=== PATIENT | female | born 1985 | race Two or more races ===

== ENCOUNTER 2018-05-22 13:58 | Observation (INO) | payer MEDICAID ==
[~2018-05-22] VITALS: Ht 152.4 cm; Wt 67.6 kg
[2018-05-22 14:50] VITALS: BP 102/60
[2018-05-22] MEDS ORDERED: PREN-380 PO (15:34)
== END 2018-05-22 15:50 | disposition home or self-care (01) ==
LOC: MLD 13:58
PROVIDERS: ADMIT Obstetrics & Gynecology; ATTEND Obstetrics & Gynecology
DX: O26.893 Other specified pregnancy related conditions, third trimester (principal); R10.9 Unspecified abdominal pain; Z3A.38 38 weeks gestation of pregnancy
CPT/HCPCS: 76805; G0378; Q0092

== ENCOUNTER 2018-05-31 10:16 | Observation (INO) | payer MEDICAID ==
[~2018-05-31] VITALS: Ht 152.4 cm; Wt 68.9 kg
[~2018-05-31 10:16] MED LIST: PREN-380 PO
[2018-05-31 11:12] VITALS: BP 104/56
== END 2018-05-31 12:53 | disposition home or self-care (01) ==
LOC: MLD 10:16
PROVIDERS: ADMIT Obstetrics & Gynecology; ATTEND Obstetrics & Gynecology
DX: O26.893 Other specified pregnancy related conditions, third trimester (principal); R10.30 Lower abdominal pain, unspecified; Z3A.39 39 weeks gestation of pregnancy
CPT/HCPCS: 59025; 76815; 81000; G0378; Q0092

== ENCOUNTER 2018-06-05 10:52 | Observation (INO) | payer MEDICAID ==
[~2018-06-05] VITALS: Ht 152.4 cm; Wt 68.9 kg
== END 2018-06-05 13:35 | disposition home or self-care (01) ==
LOC: MLD 10:52
PROVIDERS: ADMIT Obstetrics & Gynecology; ATTEND Obstetrics & Gynecology
DX: O26.893 Other specified pregnancy related conditions, third trimester (principal); R10.9 Unspecified abdominal pain; O62.9 Abnormality of forces of labor, unspecified; R51 Headache; Z3A.40 40 weeks gestation of pregnancy
CPT/HCPCS: 59025; 76815; G0378; Q0092

== ENCOUNTER 2018-06-08 10:52 | Observation (INO) | payer MEDICAID ==
[~2018-06-08] VITALS: Ht 152.4 cm; Wt 68.9 kg
== END 2018-06-08 12:35 | disposition home or self-care (01) ==
LOC: MLD 10:52
PROVIDERS: ADMIT Obstetrics & Gynecology; ATTEND Obstetrics & Gynecology
DX: O26.893 Other specified pregnancy related conditions, third trimester (principal); R10.30 Lower abdominal pain, unspecified; Z3A.38 38 weeks gestation of pregnancy
CPT/HCPCS: 76815; G0378; Q0092; 59025

== ENCOUNTER 2018-06-12 08:29 | Observation (INO) | payer MEDICAID ==
[~2018-06-12] VITALS: Ht 152.4 cm; Wt 69.9 kg
[2018-06-12 09:39] VITALS: BP 110/71
== END 2018-06-12 14:20 | disposition home or self-care (01) ==
LOC: INTOOBSV 08:29 → MLD 08:29
PROVIDERS: ADMIT Obstetrics & Gynecology; ATTEND Obstetrics & Gynecology
DX: O26.893 Other specified pregnancy related conditions, third trimester (principal); R10.9 Unspecified abdominal pain; O62.9 Abnormality of forces of labor, unspecified; Z3A.40 40 weeks gestation of pregnancy
CPT/HCPCS: 76815; G0378; Q0092; 81000

== ENCOUNTER 2018-06-12 17:38 | Inpatient (IN) | payer MEDICAID ==
[~2018-06-12] VITALS: Ht 152.4 cm; Wt 69.9 kg
[2018-06-12] MEDS ORDERED: METHYLERGONOVINE 0.2 MG/ML AMP IM PRN (18:10)
[2018-06-12] MEDS ORDERED: CARBOPROST 250 MCG/ML AMP IM PRN (18:10)
[2018-06-12] MEDS ORDERED: PROMETHAZINE 25 MG/ML VIAL IVP PRN (18:10)
[2018-06-12] MEDS ORDERED: NALBUPHINE 10 MG/ML AMP IVP PRN ×2 (18:10→20:05)
[2018-06-12] MEDS ORDERED: OXYTOCIN 10 UNITS/ML VIAL IM SCH (18:30)
[2018-06-12 19:26] LABS: BASOPHILS % (AUTO) 0.3 % (0.0-2.0); EOSINOPHILS # (AUTO) 0.1 K/uL (0-0.4); EOSINOPHILS % (AUTO) 0.6 % (0.0-4.0); HEMATOCRIT 38.5 % (36-48); HEMOGLOBIN 12.4 g/dL (12.0-16.0); LYMPHOCYTES # (AUTO) 1.5 K/uL (2.5-16.5); LYMPHOCYTES % (AUTO) 16.8 % (20.5-51.1); MEAN CORPUSCULAR HEMOGLOBIN 30 pg (27-31); MEAN CORPUSCULAR HGB CONC 32 g/dL (33-37); MEAN CORPUSCULAR VOLUME 93.1 fL (80-94); MONOCYTES # (AUTO) 0.8 K/uL (0.8-1.0); MONOCYTES % (AUTO) 8.9 % (1.7-9.3); NEUTROPHILS # (AUTO) 6.7 K/uL (1.8-7.7); NEUTROPHILS % (AUTO) 73.4 % (42.2-75.2); PLATELET COUNT (AUTO) 175 K/uL (140-450); RED BLOOD CELL COUNT(AUTO) 4.13 MIL/uL (4.20-5.40); RED CELL DISTRIBUTION WIDTH 16.1 % (11.6-13.7); WHITE BLOOD COUNT (AUTO) 9.1 K/uL (4.8-10.8)
[2018-06-12] MEDS ORDERED: MISOPROSTOL 25 MCG TAB ONE (19:29)
[2018-06-12] MEDS ORDERED: OXYTOCIN 20 UNITS in LACTATED RINGERS 1,000 ML IV SCH ×2 (19:45→20:02)
[2018-06-12] MEDS: LACTATED RINGERS 1,000 ML IV SCH (19:45)
[2018-06-12] MEDS ORDERED: MISOPROSTOL 25 MCG TAB VG SCH (20:00)
[2018-06-12 20:21] LABS: APPEARANCE,URINE CLEAR (CLEAR); BILIRUBIN,URINE NEGATIVE (NEGATIVE); BLOOD, URINE TRACE-I (NEGATIVE); COLOR,URINE YELLOW (YELLOW); LEUKOCYTE ESTERASE ,URINE NEGATIVE (NEGATIVE); NITRITE, URINE NEGATIVE (NEGATIVE); PH,URINE 5.5 (5.0-9.0); UGLUCOSE NEGATIVE (NEGATIVE)
[2018-06-12 20:29] LABS: RBC,URINE 0-5 (RARE) /HPF (0-5); WBC,URINE NONE SEEN /HPF (0-5)
[2018-06-13] MEDS: LACTATED RINGERS 1,000 ML IV SCH ×4 (02:00→14:33)
[2018-06-13] MEDS ORDERED: PROMETHAZINE 25 MG/ML VIAL ONE (03:23)
[2018-06-13] MEDS ORDERED: NALBUPHINE 10 MG/ML AMP ONE (03:23)
[2018-06-13] MEDS ORDERED: OXYTOCIN 20 UNITS/LR PREMIX 1,000 ML IV ONE (03:30)
[2018-06-13] MEDS ORDERED: BUPIVACAINE 0.125%/NS PREMIX 250 ML ONE (04:49)
--- NOTE | 2018-06-13 07:52 | NUR ---
PATIENT HAS BEEN SCREENED AND CATEGORIZED LOW NUTRITION RISK. PATIENT WILL BE SEEN WITHIN 7 DAYS OF ADMISSION. 06/19/18 RODRI CHANDLER MS, RDN
[2018-06-13] MEDS ORDERED: LIDOCAINE 1% 50 ML ONE (08:02)
[2018-06-13] MEDS ORDERED: OXYTOCIN 10 UNITS/ML VIAL ONE (08:03)
[2018-06-13] MEDS ORDERED: TERBUTALINE 1 MG/ML VIAL SUBQ ONE (10:59)
[2018-06-13] MEDS ORDERED: DEXTROSE 10% 1,000 ML IV SCH (15:50)
[2018-06-13] MEDS ORDERED: AMPICILLIN 2,000 MG VIAL ONE ×2 (18:51→22:24)
[2018-06-13] MEDS: AMPICILLIN 2,000 MG in NACL 0.9% 100 ML IV SCH (18:53)
[2018-06-14] MEDS ORDERED: DEXT 5% / LACT RING 1,000 ML IV SCH
[2018-06-14] MEDS ORDERED: BUPIVACAINE 0.125%/NS PREMIX 250 ML ONE (00:42)
[2018-06-14] MEDS: LACTATED RINGERS 1,000 ML IV SCH (00:46)
[2018-06-14] MEDS: AMPICILLIN 2,000 MG in NACL 0.9% 100 ML IV SCH ×2 (00:48→06:40)
[2018-06-14] MEDS ORDERED: AMPICILLIN 2,000 MG VIAL ONE ×2 (05:07→12:58)
[2018-06-14] MEDS: OXYTOCIN 20 UNITS/LR PREMIX 1,000 ML IV ONE ×2 (08:00→08:20)
[2018-06-14] MEDS ORDERED: ceFAZolin 1,000 MG VIAL ONE (17:13)
[2018-06-14] MEDS ORDERED: CITRIC ACID/SODIUM CITRATE 30 ML UDC PO ONE (18:00)
[2018-06-14] MEDS ORDERED: LIDOCAINE/EPI MPF 2%1:200000 10 ML VIAL INJ ONE (18:01)
[2018-06-14] MEDS ORDERED: SODIUM BICARBONATE 8.4% PFS 50 MEQ/50 ML SYR IVP ONE (18:02)
[2018-06-14] MEDS ORDERED: MORPHINE PRES FREE 10 MG/10 ML AMP IV ONE (18:02)
[2018-06-14] MEDS ORDERED: ceFAZolin 1,000 MG VIAL IVP ONE (18:05)
[2018-06-14] MEDS ORDERED: NALBUPHINE 10 MG/ML AMP IVP PRN (19:15)
[2018-06-14] MEDS ORDERED: diphenhydrAMINE 50 MG/ML VIAL IVP PRN (19:15)
[2018-06-14] MEDS ORDERED: ONDANSETRON 4 MG/2 ML VIAL IVP PRN (19:15)
[2018-06-14] MEDS ORDERED: NALOXONE 0.4 MG/ML VIAL IVP PRN ×3 (19:15)
[2018-06-14] MEDS ORDERED: KETOROLAC 60 MG/2 ML VIAL IM PRN (19:15)
[2018-06-14] MEDS ORDERED: ONDANSETRON 4 MG/2 ML VIAL ONE (19:53)
[2018-06-14] MEDS ORDERED: diphenhydrAMINE 50 MG/ML VIAL ONE (19:53)
[2018-06-14] MEDS ORDERED: HYDROmorphone 1 MG/ML AMP IVP PRN (20:20)
[2018-06-14] MEDS ORDERED: KETOROLAC 30 MG/ML VIAL IVP PRN (20:20)
[2018-06-14] MEDS ORDERED: MEASLES, MUMPS, AND RUBELLA 1 VIAL SQVAC PRN (20:20)
[2018-06-14] MEDS ORDERED: OXYTOCIN 20 UNITS in LACTATED RINGERS 1,000 ML IV SCH (20:20)
[2018-06-15] MEDS ORDERED: OXYTOCIN 10 UNITS/ML VIAL ONE (02:04)
[2018-06-15 08:24] LABS: BASOPHILS % (AUTO) 0.2 % (0.0-2.0); EOSINOPHILS % (AUTO) 0.1 % (0.0-4.0); HEMATOCRIT 31.9 % (36-48); HEMOGLOBIN 10.5 g/dL (12.0-16.0); LYMPHOCYTES # (AUTO) 0.9 K/uL (2.5-16.5); LYMPHOCYTES % (AUTO) 8.5 % (20.5-51.1); MEAN CORPUSCULAR HEMOGLOBIN 31 pg (27-31); MEAN CORPUSCULAR HGB CONC 33 g/dL (33-37); MEAN CORPUSCULAR VOLUME 93.4 fL (80-94); MONOCYTES % (AUTO) 9.7 % (1.7-9.3); NEUTROPHILS # (AUTO) 8.7 K/uL (1.8-7.7); NEUTROPHILS % (AUTO) 81.5 % (42.2-75.2); PLATELET COUNT (AUTO) 131 K/uL (140-450); RED BLOOD CELL COUNT(AUTO) 3.41 MIL/uL (4.20-5.40); RED CELL DISTRIBUTION WIDTH 16.1 % (11.6-13.7); WHITE BLOOD COUNT (AUTO) 10.7 K/uL (4.8-10.8)
[2018-06-16] MEDS ORDERED: ACETAMINOPHEN 325 MG TAB PO PRN (08:00)
[2018-06-16] MEDS ORDERED: BISACODYL 5 MG TABEC PO SCH (08:00)
[2018-06-16] MEDS ORDERED: DOCUSATE SODIUM 100 MG GELCAP PO SCH (08:00)
[2018-06-16] MEDS ORDERED: SODIUM PHOSPHATE 118 ML ENEM RC PRN (08:00)
[2018-06-16] MEDS ORDERED: IBUPROFEN 600 MG TAB PO PRN (08:00)
[2018-06-16] MEDS: SIMETHICONE 80 MG TAB.CHEW PO SCH ×2 (09:40→17:04)
[2018-06-17] MEDS: SIMETHICONE 80 MG TAB.CHEW PO SCH (17:46)
[2018-06-18 13:57] VITALS: BP 123/80
== END 2018-06-18 15:00 | disposition home or self-care (01) | DRG 540 ==
LOC: MLD 17:38 → MFCC 06-14 20:30
PROVIDERS: ADMIT Obstetrics & Gynecology; ATTEND Obstetrics & Gynecology
PROC: 10D00Z1 Extraction of Products of Conception, Low, Open Approach (ICD-10-PCS; principal; 2018-06-14 17:45)
DX: O62.2 Other uterine inertia (principal); O48.0 Post-term pregnancy; O77.0 Labor and delivery complicated by meconium in amniotic fluid; O69.81X0 Labor and delivery complicated by cord around neck, without compression, not applicable or unspecified; Z37.0 Single live birth; Z3A.41 41 weeks gestation of pregnancy
CPT/HCPCS: 36415; 51702; 59200; 81001; 85025; 86592; 86886; 86900; 86901; J0290; J0690; J1200; J1885; J2001; J2270; J2300; J2405; J2550; J2590; J3105; J3490; J7060; J7120

== ENCOUNTER 2020-07-28 07:26 | Inpatient (IN) | payer MEDICAID, SELFPAY ==
[~2020-07-28] VITALS: Ht 152.4 cm; Wt 72.6 kg
[2020-07-28] MEDS: KETOROLAC 30 MG/ML VIAL IM/IVP SCH (07:00)
[2020-07-28] MEDS: LACTATED RINGERS 1,000 ML IV SCH ×2 (08:15→16:15)
[2020-07-28 09:56] VITALS: BP 107/72
[2020-07-28 09:59] LABS: BASOPHILS % (AUTO) 0.1 % (0.0-2.0); EOSINOPHILS % (AUTO) 0.2 % (0.0-4.0); HEMATOCRIT 38.9 % (36-48); LYMPHOCYTES % (AUTO) 13.7 % (20.5-51.1); MEAN CORPUSCULAR HEMOGLOBIN 32 pg (27-31); MEAN CORPUSCULAR HGB CONC 33 g/dL (33-37); MEAN CORPUSCULAR VOLUME 95.5 fL (80-94); MONOCYTES # (AUTO) 0.5 K/uL (0.8-1.0); MONOCYTES % (AUTO) 6.8 % (1.7-9.3); NEUTROPHILS # (AUTO) 5.9 K/uL (1.8-7.7); NEUTROPHILS % (AUTO) 79.2 % (42.2-75.2); PLATELET COUNT (AUTO) 132 K/uL (140-450); RED BLOOD CELL COUNT(AUTO) 4.08 MIL/uL (4.20-5.40); RED CELL DISTRIBUTION WIDTH 17.5 % (11.6-13.7); WHITE BLOOD COUNT (AUTO) 7.5 K/uL (4.8-10.8)
[2020-07-28 10:10] LABS: APPEARANCE,URINE SL CLOUDY (CLEAR); BILIRUBIN,URINE NEGATIVE (NEGATIVE); BLOOD, URINE TRACE-I (NEGATIVE); COLOR,URINE YELLOW (YELLOW); LEUKOCYTE ESTERASE ,URINE NEGATIVE (NEGATIVE); NITRITE, URINE NEGATIVE (NEGATIVE); UGLUCOSE NEGATIVE (NEGATIVE)
[2020-07-28 10:16] LABS: ALBUMIN 2.8 g/dL (3.4-5.0); ANION GAP 10.4 (8-16); CARBON DIOXIDE 26.6 mmol/L (21-32); CREATININE 0.5 mg/dL (0.6-1.3); TOTAL BILIRUBIN 0.2 mg/dL (0.0-1.0)
[2020-07-28 11:45] LABS: WBC,URINE 0-5 /HPF (0-5)
[2020-07-28] MEDS ORDERED: CITRIC ACID/SODIUM CITRATE 30 ML UDC ONE (12:07)
[2020-07-28] MEDS ORDERED: fentaNYL citrate 0.05 MG/ML VIAL ONE (12:36)
[2020-07-28] MEDS ORDERED: MIDAZOLAM 2 MG/2 ML VIAL ONE (12:37)
[2020-07-28] MEDS ORDERED: MORPHINE PRES FREE 10 MG/10 ML AMP IV ONE (12:37)
[2020-07-28] MEDS ORDERED: OXYTOCIN 10 UNITS/ML VIAL ONE (13:40)
[2020-07-28] MEDS ORDERED: MEPERIDINE 25 MG/ML SYR IVP PRN (13:50)
[2020-07-28] MEDS: OXYTOCIN 20 UNITS in LACTATED RINGERS 1,000 ML IV SCH ×4 (13:50→22:11)
[2020-07-28] MEDS ORDERED: diphenhydrAMINE 50 MG/ML VIAL IVP PRN ×2 (13:50)
[2020-07-28] MEDS ORDERED: ONDANSETRON 4 MG/2 ML VIAL IVP PRN ×2 (13:50)
[2020-07-28] MEDS ORDERED: NALOXONE 0.4 MG/ML VIAL IVP PRN ×2 (13:50)
[2020-07-28] MEDS ORDERED: OXYTOCIN 20 UNITS/LR PREMIX 1,000 ML IV ONE (14:39)
[2020-07-28] MEDS ORDERED: HYDROmorphone 1 MG/ML AMP IVP PRN (16:00)
[2020-07-28] MEDS ORDERED: KETOROLAC 30 MG/ML VIAL IVP PRN (16:00)
[2020-07-28] MEDS ORDERED: MEASLES, MUMPS, AND RUBELLA 1 VIAL SQVAC PRN (16:00)
[2020-07-28 20:00] VITALS: BP 108/65
[2020-07-29] VITALS: BP 102/64
[2020-07-29] MEDS: OXYTOCIN 20 UNITS in LACTATED RINGERS 1,000 ML IV SCH ×3 (00:01→06:32)
[2020-07-29] MEDS: KETOROLAC 30 MG/ML VIAL IM/IVP SCH ×3 (00:12→12:29)
[2020-07-29] MEDS: LACTATED RINGERS 1,000 ML IV SCH ×2 (00:15→08:15)
[2020-07-29 04:00] VITALS: BP 97/56
[2020-07-29] MEDS ORDERED: OXYTOCIN 20 UNITS/LR PREMIX 1,000 ML IV ONE (05:49)
[2020-07-29 08:00] VITALS: BP 102/59
[2020-07-29 08:46] LABS: BASOPHILS # (AUTO) 0.1 K/uL (0.00-0.22); EOSINOPHILS % (AUTO) 0.3 % (0.0-4.0); MONOCYTES # (AUTO) 0.8 K/uL (0.8-1.0); MONOCYTES % (AUTO) 7.2 % (1.7-9.3); RED BLOOD CELL COUNT(AUTO) 4.15 MIL/uL (4.20-5.40)
[2020-07-29 08:58] LABS: BASOPHILS % (AUTO) 0.9 % (0.0-2.0); HEMATOCRIT 39.7 % (36-48); LYMPHOCYTES # (AUTO) 1.4 K/uL (2.5-16.5); LYMPHOCYTES % (AUTO) 11.9 % (20.5-51.1); MEAN CORPUSCULAR HEMOGLOBIN 31 pg (27-31); MEAN CORPUSCULAR HGB CONC 33 g/dL (33-37); MEAN CORPUSCULAR VOLUME 95.7 fL (80-94); NEUTROPHILS # (AUTO) 9.1 K/uL (1.8-7.7); NEUTROPHILS % (AUTO) 79.7 % (42.2-75.2); RED CELL DISTRIBUTION WIDTH 17.6 % (11.6-13.7); WHITE BLOOD COUNT (AUTO) 11.5 K/uL (4.8-10.8)
[2020-07-29 08:59] LABS: PLATELET COUNT (AUTO) 141 K/uL (140-450)
[2020-07-29 12:00] VITALS: BP 100/59
[2020-07-29 16:00] VITALS: BP 101/71
[2020-07-30] MEDS ORDERED: SODIUM PHOSPHATE 118 ML ENEM RC PRN (09:00)
[2020-07-30] MEDS ORDERED: IBUPROFEN 600 MG TAB PO PRN (09:00)
[2020-07-30] MEDS: SIMETHICONE 80 MG TAB.CHEW PO SCH ×3 (09:20→18:12)
[2020-07-30] MEDS: bisacodyL 5 MG TABEC PO SCH (09:20)
[2020-07-30] MEDS: DOCUSATE SODIUM 100 MG GELCAP PO SCH (09:21)
[2020-07-30 14:32] LABS: ANION GAP 10.1 (8-16); CARBON DIOXIDE 29.9 mmol/L (21-32); CREATININE 0.7 mg/dL (0.6-1.3)
[2020-07-31] MEDS: ACETAMINOPHEN 325 MG TAB PO PRN ×2 (03:38→17:38)
[2020-07-31] MEDS: SIMETHICONE 80 MG TAB.CHEW PO SCH ×2 (10:12→16:56)
[2020-07-31] MEDS: DOCUSATE SODIUM 100 MG GELCAP PO SCH (10:12)
[2020-07-31] MEDS: bisacodyL 5 MG TABEC PO SCH (10:12)
[2020-08-01] MEDS: ACETAMINOPHEN 325 MG TAB PO PRN (00:23)
[2020-08-01] MEDS: SIMETHICONE 80 MG TAB.CHEW PO SCH (08:41)
[2020-08-01] MEDS: DOCUSATE SODIUM 100 MG GELCAP PO SCH (08:42)
[2020-08-01] MEDS: bisacodyL 5 MG TABEC PO SCH (08:42)
== END 2020-08-01 14:45 | disposition home or self-care (01) | DRG 540 ==
LOC: MFCC 07:26 → MTU 18:45 → MFCC 07-29 16:46
PROVIDERS: ADMIT Obstetrics & Gynecology; ATTEND Obstetrics & Gynecology
PROC: 3E0234Z Introduction of Serum, Toxoid and Vaccine into Muscle, Percutaneous Approach (ICD-10-PCS; 2020-07-28)
PROC: 3E0134Z Introduction of Serum, Toxoid and Vaccine into Subcutaneous Tissue, Percutaneous Approach (ICD-10-PCS; 2020-07-28)
PROC: 10D00Z1 Extraction of Products of Conception, Low, Open Approach (ICD-10-PCS; principal; 2020-07-28 12:00)
DX: O69.81X0 Labor and delivery complicated by cord around neck, without compression, not applicable or unspecified (principal); O99.42 Diseases of the circulatory system complicating childbirth; O34.211 Maternal care for low transverse scar from previous cesarean delivery; I49.3 Ventricular premature depolarization; Z20.822 Contact with and (suspected) exposure to COVID-19; Z37.0 Single live birth; Z3A.40 40 weeks gestation of pregnancy; Z23 Encounter for immunization
CPT/HCPCS: 36415; 80048; 80053; 81001; 81003; 83735; 84484; 85025; 86592; 86886; 86900; 86901; 87081; 87086; 93005; 96360; J0690; J1200; J1885; J2250; J2270; J2590; J3010; J7060; J7120